=== PATIENT | female | born 1940 | race African-American/Black ===

== ENCOUNTER 2020-01-12 22:39 | Inpatient (IN) | payer OTHER ==
[~2020-01-12] VITALS: Ht 170.2 cm; Wt 68.5 kg
[~2020-01-12 22:39] MED LIST: BENICAR40 MG PO; IBUPROFEN 800800 MG PO; NORFLEX100 MG PO; PERCOCET 5-3251 EACH PO
[2020-01-12 22:41] VITALS: BP 202/112
[2020-01-12] MEDS ORDERED: ALEVE220 M1 PO (22:56)
[2020-01-12] MEDS ORDERED: [UNRECOGNIZED DRUG - OTHER] PO (22:58)
[2020-01-12 23:30] LABS: BASOPHILS 0.7 % (0.0-2.0); EOSINOPHILS 1.8 % (0.0-3.0); HEMOGLOBIN 11.5 gm/dL (12.0-15.0); LYMPHOCYTES 21.6 % (24.0-44.0); MCHC 31.9 g/dL (28.0-37.0); MCV 81.4 fL (80.0-100.0); MONOCYTES 6.3 % (1.0-8.0); PLATELET COUNT 297 thou/uL (150-400); POLYS 69.6 % (36.0-66.0); RBC 4.42 mil/uL (4.20-5.00); RDW 15.5 % (10.5-14.5); WBC 10.1 thou/uL (4.0-11.0)
[2020-01-12 23:32] LABS: ANION GAP 9 mmol/L (7-16); BUN 24 mg/dL (7-18); CALCIUM 8.6 mg/dL (8.5-10.1); CHLORIDE 107 mmol/L (98-107); CO2 28 mmol/L (21-32); CREATININE 0.8 mg/dL (0.6-1.0); GLUCOSE 133 mg/dL (74-106); POTASSIUM 3.4 mmol/L (3.5-5.1); SODIUM 144 mmol/L (136-145)
[2020-01-12 23:43] LABS: ALBUMIN 3.3 g/dL (3.4-5.0); DIRECT BILIRUBIN < 0.1 mg/dL (<0.1-0.2); SGOT 20 U/L (15-37); SGPT 19 U/L (30-65); TOTAL BILIRUBIN 0.3 mg/dL (0.2-1.0); TOTAL PROTEIN 6.5 g/dL (6.4-8.2); TROPONIN-I <0.06 ng/mL (<0.06)
[2020-01-12 23:52] LABS: PROTIME 10.7 Seconds (9.3-11.4)
[2020-01-13] VITALS (8 sets, daily range): BP systolic 103–190; BP diastolic 67–122
[2020-01-13 06:06] LABS: HEMATOCRIT 31.1 % (37.0-47.0); HEMOGLOBIN 10.2 gm/dL (12.0-15.0); MCH 26.7 pg (26.0-34.0); MCHC 32.7 g/dL (28.0-37.0); MCV 81.6 fL (80.0-100.0); RBC 3.81 mil/uL (4.20-5.00); RDW 15.1 % (10.5-14.5); WBC 7.8 thou/uL (4.0-11.0)
[2020-01-13 06:31] LABS: CALCIUM 8.2 mg/dL (8.5-10.1); CREATININE 0.7 mg/dL (0.6-1.0); POTASSIUM 3.9 mmol/L (3.5-5.1)
--- NOTE | 2020-01-13 11:19 | EKG ---
[facility] [place] [address] ELECTROCARDIOGRAM REPORT Name: CLEM GRAHAM Room #: 219-P ADM IN M.R.#: [id number] Admission: 01/12/20 Attend Phys: Tuan Jones MD Discharge: Date of : 42 Report #: [id number] THIS REPORT FOR: cc: RANJIT - No family physician/PCP RANJIT - No family physician/PCP Jermaine Conteh MD LOCATED WITHIN [facility] ~ THIS REPORT FOR: //name// [facility] ED Test Date: 2020-01-12 Test Time: 23:04:29 Pat Name: CLEM GRAHAM Department: Room: 219 Gender: F Retail Sales Manager: SRIDEVI : 1940 Requested By: Mirza Gee Order Number: [id number] MD: Jermaine Conteh Measurements Intervals [place] Rate: 89 P: 48 IA: 169 QRS: -39 QRSD: 93 T: -28 QT: 369 QTc: 449 Interpretive Statements Sinus rhythm Probable left atrial enlargement Left ventricular hypertrophy Poor R wave progression No previous ECG available for comparison Electronically Signed On 01-13-2020 11:18:50 CDT by Jermaine Conteh [email or web address] <ELECTRONICALLY SIGNED> By: Jermaine Conteh MD, FAC 01/13/20 1118 [id number] Jermaine Conteh MD, LOCATED WITHIN [facility] /EPI
--- NOTE | 2020-01-13 16:20 | NUR ---
ASSESSMENT CHARTED. PT ALERT AND ORIENTED. VSS. DENIED HAVING PAIN OR DISCOMFORT. SEEN BY DR. ZHAO. ORDERS GIVEN FOR NPO AFTER MIDNIGHT. EGD AND COLONOSCOPY IN AM. BOWEL PREP STARTED.
[2020-01-14 00:03] VITALS: BP 148/86
[2020-01-14 04:06] VITALS: BP 149/97
--- NOTE | 2020-01-14 04:42 | NUR ---
PT IS ALERT AND ORIENTED X4. LUNGS ARE CLEAR. ABDOMEN IS ROUND AND SOFT BOWEL SOUNDS ACTIVE. PT HAS DRANK BOWEL PROCEDURE PREP FOR COLONOSCOPY PROCEDURE THIS AM. NPO AFTER MIDNIGHT. DENIES PAIN ISSUES. BLOOD PRESSURE MEDS GIVEN DUE TO ELEVATED BLOOD PRESSURES. PT ANXIOUS FOR PROCEDURE AND TESTING FOR RESULTS. WILL CONTINUE TO ASSESS AND MONITOR PER NURSING.
[2020-01-14 06:00] VITALS: BP 144/78
[2020-01-14 12:33] VITALS: BP 157/92
[2020-01-14] MEDS ORDERED: TYLENOL325 MG PO (14:33)
[2020-01-14 14:41] VITALS: BP 157/92
--- NOTE | 2020-01-14 15:01 | NUR ---
ASSUMED CARE OF PT AT SHIFT CHANGE. ASSESSMENTS CHARTED. MEDS GIVEN PER MAY. PT A&OX4. DAUGHTER AT BEDSIDE. COLONOSCOPY COMPLETE WITH NO CONTINUING CONCERNS. DISCHARGE ORDERS AND INSTRUCTIONS COMPLETE. THIS NURSE WALKED PT TO FRONT ENTRANCE TO DAUGHTER WAITING IN CAR.
[2020-01-14 15:03] VITALS: BP 157/92
--- NOTE | 2020-01-15 16:08 | P ---
[facility] [place] [address] PROCEDURE REPORT Name: CLEM GRAHAM Room #: 219-P [facility] IN M.R.#: [id number] Admission: 01/12/20 Attend Phys: Yolande Boyd Discharge: 01/14/20 Date of : 42 Report #: [id number] THIS REPORT FOR: cc: RANJIT - No family physician/PCP FAM - No family physician/PCP Dev Guzman MD ~ CC: RANJIT physician/PCP Yolande Boyd MD DATE OF SERVICE: 01/14/2020 PROCEDURES PERFORMED: Colonoscopy with polypectomy. HISTORY OF PRESENT ILLNESS: The patient is a 79-year-old female with several episodes of hematochezia on Tuesday. No previous history of GI bleed. No previous colonoscopy. The patient denies any abdominal pain during this episode or sense. No recent history of constipation or diarrhea. No family history of colon cancer. The patient reports no further bleeding at this time. Her hemoglobin was 11.5 on admission, 10.2 yesterday. Plan is for colonoscopy. DESCRIPTION OF PROCEDURE: The risks and benefits of the procedure were explained to the patient, those risks including but not limited to bleeding, perforation and the risk of sedation. She understood these risks and gave informed consent. Sedation was given using propofol per anesthesia. Next, a digital rectal exam was initially performed, which was normal. Next, using a standard Olympus colonoscope, the scope was placed in the patient's anus and advanced under direct vision to the cecum. The overall prep was excellent. The cecum and ileocecal valve were normal in appearance. A few scattered diverticula were noted in the ascending colon, otherwise normal. No evidence of inflammation. The transverse colon was normal. Diverticulosis was also noted in the descending and sigmoid colon, no evidence of inflammation, otherwise normal. In the distal rectum, a 6 mm partially pedunculated polyp was noted. This was removed by snare cautery, otherwise normal rectum. No obvious hemorrhoids or abnormalities were noted in the anal canal. Again, there was no evidence of blood throughout the exam today. The scope was then withdrawn and the procedure terminated. The patient tolerated the procedure well. IMPRESSION: 1. Diverticulosis, no signs of inflammation, possible source of recent gastrointestinal bleed. 2. Distal rectal polyp, possible also source of recent gastrointestinal bleed, status post polypectomy today. 3. Otherwise, normal colonoscopy. RECOMMENDATIONS: [address] [address] PROCEDURE REPORT Name: SANTOSCLEM Room #: 219-P [facility] IN .R.#: [id number] Admission: 01/12/20 Attend Phys: Yolande Boyd Discharge: 01/14/20 Date of : 42 Report #: [id number] 1. Observe the patient post-procedure. 2. Advance diet. 3. Okay to discharge to home today. Thank you for allowing me to participate in her care. <ELECTRONICALLY SIGNED> By: Dev Guzman MD 01/15/20 1608 [id number] Dev Guzman MD /nt
== END 2020-01-14 14:45 | disposition home or self-care (01) | DRG 393 ==
LOC: ER 22:39 → 2N 23:59 → EROBS 23:59 → 2N 01-13 01:18
PROVIDERS: Emergency Medicine; Nurse Practitioner Family; ADMIT Hospitalist; ATTEND Hospitalist
PROC: 0DBP8ZZ Excision of Rectum, Via Natural or Artificial Opening Endoscopic (ICD-10-PCS; principal; 2020-01-14)
DX: K62.1 Rectal polyp (principal); K57.31 Diverticulosis of large intestine without perforation or abscess with bleeding; K92.1 Melena; I34.1 Nonrheumatic mitral (valve) prolapse; I10 Essential (primary) hypertension; M41.9 Scoliosis, unspecified; Z20.828 Contact with and (suspected) exposure to other viral communicable diseases; Z88.0 Allergy status to penicillin; Z79.899 Other long term (current) drug therapy; Z79.82 Long term (current) use of aspirin
CPT/HCPCS: 10081; 62110; 62900; 70005